=== PATIENT | female | born 1970 | race Caucasian/White ===

== ENCOUNTER 2022-03-26 18:05 | Inpatient (IN) | payer OTHER, SELFPAY ==
[~2022-03-26] VITALS: Ht 167.6 cm; Wt 85.6 kg
[2022-03-26 20:33] LABS: BASOPHILS # (AUTO) 0.1 X10'3 (0-0.2); BASOPHILS % (AUTO) 0.6 % (0-1); EOSINOPHILS # (AUTO) 0.1 X10'3 (0-0.9); EOSINOPHILS % (AUTO) 0.6 % (0-6); HEMATOCRIT 46.3 % (35.0-45.0); HEMOGLOBIN 15.9 g/dl (12.0-16.0); LYMPHOCYTES # (AUTO) 3.7 X10'3 (1.1-4.8); LYMPHOCYTES % (AUTO) 27.7 % (21-51); MEAN CORPUSCULAR HEMOGLOBIN 35.3 PG (27.0-31.0); MEAN CORPUSCULAR HGB CONC 34.4 g/dL (33.0-36.5); MEAN CORPUSCULAR VOLUME 102.7 FL (78-98); MEAN PLATELET VOLUME 9.2 FL (7.4-10.4); MONOCYTES % (AUTO) 7.4 % (2-12); NEUTROPHILS # (AUTO) 8.5 X10'3 (1.8-7.7); NEUTROPHILS % (AUTO) 63.7 % (42-75); PLATELET COUNT 283 X10'3 (140-440); RED BLOOD COUNT 4.51 X10'6 (4.20-5.60); RED CELL DISTRIBUTION WIDTH 13.1 % (11.5-14.5); WHITE BLOOD COUNT 13.4 X10'3 (4.5-11.0)
[2022-03-26 20:56] LABS: ALANINE AMINOTRANSFERASE 32 U/L (12-78); ALKALINE PHOSPHATASE 95 IU/L (46-116); ANION GAP 6 (8-16); ASPARTATE AMINO TRANSFERASE 23 U/L (10-37); BILIRUBIN,TOTAL 0.8 MG/DL (0.1-1.0); BLOOD UREA NITROGEN 12 MG/DL (7-18); BUN/CREATININE RATIO 17.6 (6.6-38.0); CALCIUM 9.9 MG/DL (8.5-10.1); CHLORIDE 97 MMOL/L (99-107); CREATININE 0.68 MG/DL (0.40-0.90); GLUCOSE 148 MG/DL (70-104); POTASSIUM 3.5 MMOL/L (3.5-5.1); SODIUM 136 MMOL/L (135-145); TOTAL CARBON DIOXIDE 33.1 MMOL/L (24-32); TOTAL PROTEIN 8.2 G/DL (6.4-8.2); eGFR 90 ML/MIN
[2022-03-27] MEDS ORDERED: albuterol 2.5 MG/3 ML nebule NEB ONE ×2 (01:20→02:20)
[2022-03-27] MEDS ORDERED: predniSONE 20 mg tablet PO ONE (01:20)
[2022-03-27] MEDS ORDERED: ipratropium/albuterol 3ml nebule NEB ONE ×2 (01:20→02:20)
[2022-03-27] MEDS ORDERED: azithromycin/NS 500mg/250ml 250 ML IV ONE (02:25)
[2022-03-27] MEDS ORDERED: magnesium 2GM in 50ml NS 50 ML IV ONE (02:25)
[2022-03-27 02:54] LABS: BASOPHILS # (AUTO) 0.1 X10'3 (0-0.2); BASOPHILS % (AUTO) 0.5 % (0-1); EOSINOPHILS % (AUTO) 0.4 % (0-6); HEMATOCRIT 44.6 % (35.0-45.0); HEMOGLOBIN 15.3 g/dl (12.0-16.0); LYMPHOCYTES # (AUTO) 3.4 X10'3 (1.1-4.8); LYMPHOCYTES % (AUTO) 28.8 % (21-51); MEAN CORPUSCULAR HEMOGLOBIN 35.1 PG (27.0-31.0); MEAN CORPUSCULAR HGB CONC 34.3 g/dL (33.0-36.5); MEAN CORPUSCULAR VOLUME 102.6 FL (78-98); MEAN PLATELET VOLUME 8.8 FL (7.4-10.4); MONOCYTES % (AUTO) 8.2 % (2-12); NEUTROPHILS # (AUTO) 7.3 X10'3 (1.8-7.7); NEUTROPHILS % (AUTO) 62.1 % (42-75); PLATELET COUNT 262 X10'3 (140-440); RED BLOOD COUNT 4.34 X10'6 (4.20-5.60); RED CELL DISTRIBUTION WIDTH 13.3 % (11.5-14.5); WHITE BLOOD COUNT 11.8 X10'3 (4.5-11.0)
[2022-03-27] MEDS ORDERED: mag hydrox/Alum hydrox/simeth 30ml oral suspension PO PRN (03:05)
[2022-03-27] MEDS ORDERED: ondansetron 4mg rapidly disintigrating tab PO PRN (03:05)
[2022-03-27] MEDS ORDERED: magnesium hydroxide 30ml (MOM) UD suspension PO PRN (03:05)
[2022-03-27] MEDS ORDERED: ondansetron/PF 4mg/2ml inj IV PRN (03:05)
[2022-03-27] MEDS ORDERED: acetaminophen 325mg tablet PO PRN ×2 (03:05)
[2022-03-27] MEDS ORDERED: bisacodyl 10mg suppository rectal RC PRN (03:05)
[2022-03-27] MEDS ORDERED: acetaminophen 650mg rectal suppository RC PRN (03:05)
[2022-03-27] MEDS ORDERED: diphenhydrAMINE 25mg capsule PO PRN (03:05)
[2022-03-27] MEDS ORDERED: diphenhydrAMINE 50 mg/ml inj IV PRN (03:05)
[2022-03-27 03:06] LABS: ALANINE AMINOTRANSFERASE 26 U/L (12-78); ALBUMIN 3.8 G/DL (3.4-5.0); ALKALINE PHOSPHATASE 86 IU/L (46-116); ANION GAP 9 (8-16); ASPARTATE AMINO TRANSFERASE 20 U/L (10-37); BILIRUBIN,TOTAL 1.3 MG/DL (0.1-1.0); BLOOD UREA NITROGEN 11 MG/DL (7-18); BUN/CREATININE RATIO 16.4 (6.6-38.0); CALCIUM 9.2 MG/DL (8.5-10.1); CHLORIDE 97 MMOL/L (99-107); CREATININE 0.67 MG/DL (0.40-0.90); GLUCOSE 172 MG/DL (70-104); POTASSIUM 3.5 MMOL/L (3.5-5.1); SODIUM 135 MMOL/L (135-145); TOTAL CARBON DIOXIDE 29.5 MMOL/L (24-32); TOTAL PROTEIN 7.5 G/DL (6.4-8.2); eGFR > 90 ML/MIN
[2022-03-27] MEDS: normal saline 1000ml 1,000 ML IV SCH ×3 (03:23→20:46)
[2022-03-27 03:33] LABS: HEMOGLOBIN A1C 7.2 % (4.5-6.2)
[2022-03-27 03:36] LABS: CREATINE KINASE 38 U/L (26-192); LIPASE < 50 U/L (73-393); MAGNESIUM 1.9 MG/DL (1.5-2.4); PHOSPHORUS 3.3 MG/DL (2.3-4.5)
[2022-03-27 03:46] LABS: APTT 27 SECONDS (22-32)
[2022-03-27 03:47] LABS: D-DIMER < 0.19 MG/L FEU (0-0.50)
[2022-03-27 08:00] VITALS: BP 121/66
[2022-03-27] MEDS: docusate sod 100mg capsule PO SCH ×2 (08:00→20:45)
[2022-03-27] MEDS: heparin, porcine 5000 units/ml vial SQ SCH ×2 (08:00→20:46)
[2022-03-27] MEDS: pantoprazole 40mg Tablet.DR PO SCH (08:00)
[2022-03-27] MEDS: carVEDilol 3.125mg tablet PO SCH ×2 (08:00→20:46)
[2022-03-27] MEDS: CefTRIAXone/D5W-Rocephin 1gm 50 ML IV SCH (08:48)
[2022-03-27] MEDS: azithromycin/NS 500mg/250ml 250 ML IV SCH (09:44)
--- NOTE | 2022-03-27 11:59 | NUR ---
promotional table spacer promotional table spacer Page Sent promotional table spacer PAGER ID: [phone] MESSAGE: CANDIE ALECIA MORENO RM 340 A pt reports she is diabetic, HGB A1C is 7.2 do you want to start diabetic protocol? thank you Taco BAKER
[2022-03-27 18:00] VITALS: BP 103/62
--- NOTE | 2022-03-27 18:05 | NUR ---
Patient in room [facility]. I have received report from OLIVIA España and had the opportunity to ask questions and assume patient care.
[2022-03-27] MEDS ORDERED: temazepam 15mg capsule PO PRN (21:00)
[2022-03-27 22:00] VITALS: BP 106/67
[2022-03-28 06:00] VITALS: BP_SYST 118; BP_SYST 99; BP_DIAS 58; BP_DIAS 64
--- NOTE | 2022-03-28 06:50 | NUR ---
Problems reprioritized. Patient report given, questions answered & plan of care reviewed with OLIVIA Acosta.
[2022-03-28 07:32] LABS: BASOPHILS % (AUTO) 0.2 % (0-1); EOSINOPHILS % (AUTO) 0.1 % (0-6); HEMATOCRIT 38.4 % (35.0-45.0); HEMOGLOBIN 13.1 g/dl (12.0-16.0); LYMPHOCYTES # (AUTO) 3.1 X10'3 (1.1-4.8); MEAN CORPUSCULAR HEMOGLOBIN 34.9 PG (27.0-31.0); MEAN CORPUSCULAR VOLUME 102.7 FL (78-98); MEAN PLATELET VOLUME 9.1 FL (7.4-10.4); MONOCYTES # (AUTO) 0.7 X10'3 (0-0.9); MONOCYTES % (AUTO) 6.4 % (2-12); NEUTROPHILS # (AUTO) 7.2 X10'3 (1.8-7.7); NEUTROPHILS % (AUTO) 65.3 % (42-75); PLATELET COUNT 259 X10'3 (140-440); RED BLOOD COUNT 3.74 X10'6 (4.20-5.60); RED CELL DISTRIBUTION WIDTH 13.3 % (11.5-14.5)
[2022-03-28 07:49] LABS: ALANINE AMINOTRANSFERASE 23 U/L (12-78); ALBUMIN 2.8 G/DL (3.4-5.0); ALBUMIN/GLOBULIN RATIO 0.8 (1.1-1.5); ALKALINE PHOSPHATASE 67 IU/L (46-116); ANION GAP 6 (8-16); ASPARTATE AMINO TRANSFERASE 18 U/L (10-37); BILIRUBIN,TOTAL 0.9 MG/DL (0.1-1.0); BLOOD UREA NITROGEN 9 MG/DL (7-18); BUN/CREATININE RATIO 15.8 (6.6-38.0); CALCIUM 8.8 MG/DL (8.5-10.1); CHLORIDE 102 MMOL/L (99-107); CHOL/HDL RATIO 3.6 (0.00-4.99); CHOLESTEROL 171 MG/DL (0-200); CREATININE 0.57 MG/DL (0.40-0.90); GLUCOSE 164 MG/DL (70-104); HDL CHOLESTEROL 47 MG/DL (35-60); LDL CHOLESTEROL 113 MG/DL (50-100); POTASSIUM 3.5 MMOL/L (3.5-5.1); SODIUM 139 MMOL/L (135-145); TOTAL CARBON DIOXIDE 31.5 MMOL/L (24-32); TOTAL PROTEIN 6.2 G/DL (6.4-8.2); TRIGLYCERIDES 207 MG/DL (20-135); eGFR > 90 ML/MIN
[2022-03-28 08:00] VITALS: BP 115/70
[2022-03-28] MEDS: docusate sod 100mg capsule PO SCH ×3 (08:00→19:19)
[2022-03-28] MEDS: pantoprazole 40mg Tablet.DR PO SCH (08:08)
[2022-03-28] MEDS: carVEDilol 3.125mg tablet PO SCH ×2 (08:08→19:17)
[2022-03-28] MEDS: heparin, porcine 5000 units/ml vial SQ SCH ×2 (08:08→19:17)
[2022-03-28] MEDS: azithromycin/NS 500mg/250ml 250 ML IV SCH (08:09)
[2022-03-28] MEDS: normal saline 1000ml 1,000 ML IV SCH ×4 (08:09→19:18)
[2022-03-28] MEDS: CefTRIAXone/D5W-Rocephin 1gm 50 ML IV SCH (09:55)
[2022-03-28] MEDS ORDERED: GLIP10TA11 PO (15:01)
[2022-03-28] MEDS ORDERED: METF-436 PO (15:01)
[2022-03-28] MEDS ORDERED: ALBU18HF2 INH (15:01)
[2022-03-28] MEDS ORDERED: LEVO137T24 PO (15:01)
[2022-03-28] MEDS ORDERED: LISI20TA28 PO (15:01)
[2022-03-28] MEDS ORDERED: LOP12.5T PO (15:01)
[2022-03-28] MEDS ORDERED: ATOR40TA71 PO (15:01)
[2022-03-28] MEDS ORDERED: ATRIN INH (15:01)
--- NOTE | 2022-03-28 15:02 | NUR ---
Per EMR pt with T2DM, well controlled with A1c 7.2%. Written DM education with RD contact information placed in patient's chart. Will remain available. Addendum: 03/28/22 at [address] Amended: Links added.
[2022-03-28] MEDS ORDERED: predniSONE 20 mg tablet PO ONE (15:30)
[2022-03-28] MEDS ORDERED: non-formulary drug (Ipratropium Bromide MDI* (Atrovent MDI*) 2 PUFFS) INH SCH (17:00)
[2022-03-28] MEDS ORDERED: albuterol 2.5 MG/3 ML nebule NEB PRN (17:10)
--- NOTE | 2022-03-28 17:38 | NUR ---
O2 Sat at rest on room air:88% Recovery O2 Sat at rest on 2 LPM:92%- 94% via NASAL CANNULA If O2 Sat did not drop below 89% on room air,ambulate patient on room air. O2 Sat while ambulating on room air: 84% Recovery O2 Sat while ambulating on 2 LPM: 93%
--- NOTE | 2022-03-28 18:42 | NUR ---
Patient in room [facility]. I have received report from OLIVIA ARGUETA and had the opportunity to ask questions and assume patient care. Addendum: 03/28/22 at 1843 by Marilu Manzanares RN Amended: Links added.
[2022-03-28] MEDS: ipratropium/albuterol 3ml nebule NEB SCH ×2 (19:23→23:27)
[2022-03-28 20:00] VITALS: BP 128/68
[2022-03-28 22:00] VITALS: BP 122/69
[2022-03-28] MEDS ORDERED: DEXTROSE 15 GM of carb/4 tabs (each vial/BOTTLE has 4 tablets) PO PRN ×2 (22:05)
[2022-03-28] MEDS ORDERED: MESSAGE TO PHARMACY PO ONE (22:05)
[2022-03-28] MEDS ORDERED: glucagon, human recombinant 1mg kit SUBCUT PRN (22:05)
[2022-03-28] MEDS ORDERED: dextrose 50%-water 50ml dispensing syringe IV PRN ×2 (22:05)
[2022-03-28] MEDS: insulin glargine (Lantus) pen - multi-dose SQ SCH (22:44)
--- NOTE | 2022-03-28 22:44 | NUR ---
pt blood sugar 239 pt ate 30% of the meal and pt had not had insulin before so said she wanted a half dose which is 6 units. diabetic teaching prococol was reviewed with pt and she stated she understood it and wanted this dose.
[2022-03-29] MEDS: ipratropium/albuterol 3ml nebule NEB SCH ×6 (03:15→22:42)
[2022-03-29] MEDS: normal saline 1000ml 1,000 ML IV SCH (05:20)
[2022-03-29 06:00] VITALS: BP 119/60
--- NOTE | 2022-03-29 06:31 | NUR ---
Problems reprioritized. Patient report given, questions answered & plan of care reviewed with OLIVIA BELL. Addendum: 03/29/22 at 0631 by Marilu Manzanares RN Amended: Links added.
[2022-03-29 06:44] LABS: BASOPHILS % (AUTO) 0.3 % (0-1); EOSINOPHILS % (AUTO) 0.1 % (0-6); HEMATOCRIT 36.9 % (35.0-45.0); HEMOGLOBIN 12.6 g/dl (12.0-16.0); LYMPHOCYTES % (AUTO) 32.4 % (21-51); MEAN CORPUSCULAR HEMOGLOBIN 35.3 PG (27.0-31.0); MEAN CORPUSCULAR HGB CONC 34.2 g/dL (33.0-36.5); MEAN CORPUSCULAR VOLUME 103.4 FL (78-98); MEAN PLATELET VOLUME 9.6 FL (7.4-10.4); MONOCYTES # (AUTO) 0.6 X10'3 (0-0.9); MONOCYTES % (AUTO) 6.5 % (2-12); NEUTROPHILS # (AUTO) 5.6 X10'3 (1.8-7.7); NEUTROPHILS % (AUTO) 60.7 % (42-75); PLATELET COUNT 272 X10'3 (140-440); RED BLOOD COUNT 3.57 X10'6 (4.20-5.60); WHITE BLOOD COUNT 9.2 X10'3 (4.5-11.0)
[2022-03-29 07:36] LABS: HEMOGLOBIN A1C 7.3 % (4.5-6.2)
[2022-03-29 07:48] LABS: ALANINE AMINOTRANSFERASE 34 U/L (12-78); ALBUMIN 2.9 G/DL (3.4-5.0); ALBUMIN/GLOBULIN RATIO 0.9 (1.1-1.5); ALKALINE PHOSPHATASE 73 IU/L (46-116); ANION GAP 9 (8-16); ASPARTATE AMINO TRANSFERASE 27 U/L (10-37); BILIRUBIN,TOTAL 0.6 MG/DL (0.1-1.0); BLOOD UREA NITROGEN 8 MG/DL (7-18); BUN/CREATININE RATIO 15.4 (6.6-38.0); CALCIUM 8.7 MG/DL (8.5-10.1); CHLORIDE 101 MMOL/L (99-107); CREATININE 0.52 MG/DL (0.40-0.90); GLUCOSE 129 MG/DL (70-104); POTASSIUM 3.4 MMOL/L (3.5-5.1); SODIUM 140 MMOL/L (135-145); TOTAL CARBON DIOXIDE 29.9 MMOL/L (24-32); TOTAL PROTEIN 6.1 G/DL (6.4-8.2); eGFR > 90 ML/MIN
[2022-03-29] MEDS: docusate sod 100mg capsule PO SCH ×3 (08:00→20:28)
[2022-03-29] MEDS: metoprolol tartrate 25mg tablet PO SCH (08:06)
[2022-03-29] MEDS: carVEDilol 3.125mg tablet PO SCH ×3 (08:06→20:32)
[2022-03-29] MEDS: lisinopril 20mg tablet PO SCH (08:07)
[2022-03-29] MEDS: atorvastatin 20mg tablet PO SCH (08:07)
[2022-03-29] MEDS: predniSONE 20 mg tablet PO SCH (08:07)
[2022-03-29] MEDS: pantoprazole 40mg Tablet.DR PO SCH (08:07)
[2022-03-29] MEDS: heparin, porcine 5000 units/ml vial SQ SCH ×2 (08:08→20:28)
[2022-03-29] MEDS: CefTRIAXone/D5W-Rocephin 1gm 50 ML IV SCH (08:08)
[2022-03-29] MEDS: levoTHYROXINE 25mcg tablet PO SCH (08:10)
[2022-03-29] MEDS: levoTHYROXINE 112mcg tablet PO SCH (08:11)
--- NOTE | 2022-03-29 08:33 | NUR ---
DM consult: Patient's A1c has already been addressed, see prior RD note. Addendum: 03/29/22 at [address] Amended: Links added.
[2022-03-29 10:00] VITALS: BP 117/68
[2022-03-29] MEDS: azithromycin/NS 500mg/250ml 250 ML IV SCH (10:10)
[2022-03-29] MEDS ORDERED: loperamide 2mg capsule PO PRN (12:30)
[2022-03-29] MEDS: insulin Lispro (HumaLOG) vial - multi-dose SQ SCH (15:25)
[2022-03-29 18:00] VITALS: BP 116/69
--- NOTE | 2022-03-29 18:46 | NUR ---
Patient in room [facility]. I have received report from OLIVIA BELL and had the opportunity to ask questions and assume patient care. Addendum: 03/29/22 at 1847 by Marilu Manzanares RN Amended: Links added.
[2022-03-29] MEDS: insulin glargine (Lantus) pen - multi-dose SQ SCH (20:42)
[2022-03-29 22:00] VITALS: BP 133/85
--- NOTE | 2022-03-30 02:30 | NUR ---
RESTING EYES [id number] NO CHANGES.
[2022-03-30] MEDS: ipratropium/albuterol 3ml nebule NEB SCH ×3 (03:19→11:59)
[2022-03-30] MEDS: normal saline 1000ml 1,000 ML IV SCH (04:22)
[2022-03-30 06:00] VITALS: BP 107/61
--- NOTE | 2022-03-30 06:32 | NUR ---
Problems reprioritized. Patient report given, questions answered & plan of care reviewed with OLIVIA BELL. Addendum: 03/30/22 at 0633 by Marilu Manzanares RN Amended: Links added.
[2022-03-30 07:16] LABS: BASOPHILS % (AUTO) 0.3 % (0-1); EOSINOPHILS % (AUTO) 0.3 % (0-6); HEMATOCRIT 36.3 % (35.0-45.0); HEMOGLOBIN 12.5 g/dl (12.0-16.0); LYMPHOCYTES # (AUTO) 2.9 X10'3 (1.1-4.8); LYMPHOCYTES % (AUTO) 32.7 % (21-51); MEAN CORPUSCULAR HEMOGLOBIN 35.7 PG (27.0-31.0); MEAN CORPUSCULAR HGB CONC 34.6 g/dL (33.0-36.5); MEAN CORPUSCULAR VOLUME 103.2 FL (78-98); MEAN PLATELET VOLUME 9.3 FL (7.4-10.4); MONOCYTES # (AUTO) 0.6 X10'3 (0-0.9); MONOCYTES % (AUTO) 7.2 % (2-12); NEUTROPHILS # (AUTO) 5.3 X10'3 (1.8-7.7); NEUTROPHILS % (AUTO) 59.5 % (42-75); PLATELET COUNT 279 X10'3 (140-440); RED BLOOD COUNT 3.52 X10'6 (4.20-5.60); RED CELL DISTRIBUTION WIDTH 12.8 % (11.5-14.5)
[2022-03-30] MEDS: CefTRIAXone/D5W-Rocephin 1gm 50 ML IV SCH (07:32)
[2022-03-30] MEDS: atorvastatin 20mg tablet PO SCH (07:32)
[2022-03-30] MEDS: lisinopril 20mg tablet PO SCH (07:32)
[2022-03-30] MEDS: levoTHYROXINE 25mcg tablet PO SCH (07:33)
[2022-03-30] MEDS: levoTHYROXINE 112mcg tablet PO SCH (07:33)
[2022-03-30] MEDS: pantoprazole 40mg Tablet.DR PO SCH (07:34)
[2022-03-30] MEDS: heparin, porcine 5000 units/ml vial SQ SCH (07:34)
[2022-03-30] MEDS: docusate sod 100mg capsule PO SCH (07:35)
[2022-03-30] MEDS: metoprolol tartrate 25mg tablet PO SCH (07:35)
[2022-03-30] MEDS: predniSONE 20 mg tablet PO SCH (07:37)
[2022-03-30 07:49] LABS: ALANINE AMINOTRANSFERASE 31 U/L (12-78); ALBUMIN 2.9 G/DL (3.4-5.0); ALBUMIN/GLOBULIN RATIO 0.9 (1.1-1.5); ALKALINE PHOSPHATASE 72 IU/L (46-116); ANION GAP 7 (8-16); ASPARTATE AMINO TRANSFERASE 23 U/L (10-37); BILIRUBIN,TOTAL 0.8 MG/DL (0.1-1.0); BLOOD UREA NITROGEN 9 MG/DL (7-18); BUN/CREATININE RATIO 15.8 (6.6-38.0); CHLORIDE 103 MMOL/L (99-107); CREATININE 0.57 MG/DL (0.40-0.90); GLUCOSE 135 MG/DL (70-104); POTASSIUM 3.4 MMOL/L (3.5-5.1); SODIUM 140 MMOL/L (135-145); TOTAL CARBON DIOXIDE 29.6 MMOL/L (24-32); eGFR > 90 ML/MIN
[2022-03-30] MEDS: azithromycin/NS 500mg/250ml 250 ML IV SCH (09:22)
[2022-03-30] MEDS: insulin Lispro (HumaLOG) vial - multi-dose SQ SCH (09:26)
[2022-03-30 10:00] VITALS: BP 117/63
[2022-03-30] MEDS ORDERED: PRED20TA PO (11:54)
[2022-03-30] MEDS ORDERED: AZIT-83 PO (11:54)
[2022-03-31] MEDS ORDERED: azithromycin 250mg tablet PO SCH (08:00)
== END 2022-03-30 15:00 | disposition home or self-care (01) | DRG 291 ==
LOC: ER 18:07 → ED HOLD 03-27 03:09 → EDBEDREQ 03-27 05:58 → SUR 3N 03-27 07:16
PROVIDERS: ADMIT Family Medicine; ATTEND Family Medicine
DX: I11.0 Hypertensive heart disease with heart failure (principal); I50.23 Acute on chronic systolic (congestive) heart failure; J96.01 Acute respiratory failure with hypoxia; J44.1 Chronic obstructive pulmonary disease with (acute) exacerbation; J44.0 Chronic obstructive pulmonary disease with (acute) lower respiratory infection; Z20.822 Contact with and (suspected) exposure to COVID-19; E03.9 Hypothyroidism, unspecified; J20.9 Acute bronchitis, unspecified; E78.5 Hyperlipidemia, unspecified; F17.210 Nicotine dependence, cigarettes, uncomplicated; K52.9 Noninfective gastroenteritis and colitis, unspecified; Z88.8 Allergy status to other drugs, medicaments and biological substances; Z98.51 Tubal ligation status; Z71.6 Tobacco abuse counseling; Z91.14 Patient's other noncompliance with medication regimen
CPT/HCPCS: 36415; 71046; 80053; 80061; 82550; 82948; 83036; 83605; 83690; 83735; 83880; 84100; 84484; 85025; 85379; 85610; 85730; 87040; 87081; 87502; 87503; 87635; 93005; 93306; 94640; 94760; 99285; A4615; A6258; C9803; G0378; J0456; J0696; J1644; J1815; J3475; J7030; J7512

== ENCOUNTER 2023-08-11 12:37 | Outpatient (CLI) | payer MEDICAID ==
[~2023-08-11 12:37] MED LIST: ALBU18HF2 INH; ATOR40TA71 PO; ATRIN INH; GLIP10TA11 PO; LEVO137T24 PO; LISI20TA28 PO; LOP12.5T PO; METF-436 PO
== END 2023-08-11 23:59 | disposition home or self-care (01) ==
LOC: VAS 12:37
PROVIDERS: ATTEND Surgery
DX: R60.9 Edema, unspecified (principal)
CPT/HCPCS: 93970

== ENCOUNTER → 2023-10-01 | Outpatient (CLI) | payer MEDICAID | END | disposition home or self-care (01) | LOC: RAD 09:35 | PROVIDERS: ATTEND Physician Assistant | DX: R06.02 Shortness of breath (principal) | CPT/HCPCS: 71046 ==